=== PATIENT | male | born 1945 | race Caucasian/White ===

== ENCOUNTER 2025-06-25 13:18 | Outpatient (OUT) | payer MEDICARE, SELFPAY ==
--- OUTSIDE RECORDS SUMMARY | 2025-06-25 13:24 | XMS_ITS | Clinical Summary ---
Author Organization [facility] Address [address] [place] [address] Phone Care Team Providers Care Structures Assembler Name Role Phone Jose Clarke DO Primary Care Provider [phone] Social History Tobacco UseTypesPacks/DayYears UsedDateSmoking Tobacco: Never AssessedSex and Gender InformationValueDate RecordedSex Assigned at BirthNot on fileLegal Sex Male07/13/2022 11:45 PM ESTGender IdentityNot on fileSexual OrientationNot on file Plan of Treatment Not on file Care Teams Team MemberRelationshipSpecialtyStart DateEnd Date Jose Clarke DO PCP - Bonwtev05/3/11
--- OUTSIDE RECORDS SUMMARY | 2025-06-25 13:24 | XMS_ITS | Clinical Summary ---
Author Organization [facility] Address [address] [place] [address] Care Team Providers Care Program Admin Name Role Phone Unavailable Primary Care Provider Unavailabl e Encounters DateTypeDepartmentCare HaeoXoedmdnszco84/03/2025 3:45 PM EDTAncillary Procedure [facility] [address] [place] [address] Abnormal findings on diagnostic imaging of other specified body structures 05/21/2025Travelfrom Last 3 Months Social History Tobacco UseTypesPacks/DayYears UsedDateSmoking Tobacco: Never AssessedSex and Gender InformationValueDate RecordedSex Assigned at BirthNot on fileLegal Sex Male05/19/2025 10:38 AM EDTGender IdentityNot on fileSexual OrientationNot on file Plan of Treatment Health MaintenanceDue DateLast DoneCommentsPneumococcal Vaccine: 65+ Years (1 of 1 - PCV)1995COVID-19 Vaccine (2023-25 season)501/04/2025, 01/22/2024, 05/22/2023Influenza Vaccine (#1)2025 Procedures Procedure NamePriorityDate/TimeAssociated DiagnosisCommentsCT ABDOMEN PELVIS WO IV OYHIMPSVFemuigr53/03/2025 3:36 PM EDT Abnormal findings on diagnostic imaging of other specified body structures from Last 3 Months Results * CT abdomen pelvis wo IV contrast (05/21/2025 3:36 PM EDT)Anatomical Region LateralityModalityBody, Pelvis, AbdomenComputed TomographySpecimen (Source) Anatomical Location / LateralityCollection Method / VolumeCollection Time Received Time05/24/2025 2:01 PM EDT Impressions 05/24/2025 2:11 PM EDT Small bilateral kidneys. Nonobstructing bilateral renal calculi. Bilateral renal cortical cysts, greater on the left as discussed. Diverticulosis, sigmoid and descending colon. Prostatomegaly. Other findings discussed. All CT scans at this facility use dose modulation, iterative reconstruction, and/or weight based dosing when appropriate to reduce radiation dose to as low as reasonably achievable. ELECTRONICALLY SIGNED BY: Venancio Naik MD Narrative 05/24/2025 2:[address] of the Abdomen and Pelvis without intravenous contrast medium History: Microhematuria. Asymptomatic. History of renal calculi. Technical Factors: CT imaging of the abdomen and pelvis were obtained and formatted as 5 mm contiguous axial images from the domes of the diaphragm to the symphysis pubis. ??Sagittal and coronal reconstructions were also obtained. Oral contrast medium: None. Intravenous contrast medium: None. Comparison: None. Findings: Lower chest: Cardiac size normal. No pericardial effusion. No coronary artery calcification. Calcification identified in the region of the mitral valve/annulus. Lung bases are clear. Liver: ??Normal in size, shape, and attenuation. ?? Bile Ducts: ??Normal in caliber. Gallbladder: ??No stones or wall thickening. Pancreas: ??Normal without masses, cysts, ductal dilatation or calcification. Spleen: ??Normal in size without masses or calcifications. ??No splenules. Kidneys: Craniocaudal dimensions right and left kidneys, 6.8 cm, and 6 cm, respectively. Marked cortical thinning, right kidney. 1.4 mm calculus posterior midpole right kidney. 1.3 mm calculus mid toupper pole left kidney, with 1.2 cm calculus, left renal collecting system. No pelvocaliectasis bilaterally. Bilateral cortical renal cysts, greater on left, with largest left renal cortical cyst measuring approximately 6.9 x 8.1 x 9.7 cm. Adrenals: ??Normal. Small bowel: ??Normal in caliber. Appendix: ??Normal. Colon: ??Normal in caliber. Diverticular change, descending and sigmoid colon. Peritoneum: ??No ascites, free air, or fluid collections. Vessels: ??Aorta normal in course and caliber. Atherosclerotic change identified greatest at aortoiliac junction. Lymph nodes: ?? Retroperitoneal: ??No enlarged retroperitoneal lymph nodes. Mesenteric: ??No enlarged mesenteric lymph nodes. Pelvic: No enlarged pelvic lymph nodes. Ureters: Normal in course and caliber. No calcifications. Bladder: No wall thickening. Decompressed. Prostate: Enlarged with transverse diameter 5.2 cm. Abdominal Wall: Fat identified within bilateral inguinal canals. No diastasis of rectus musculature. ?? No edema or masses. Bones: ??No bone lesions. No degenerative changes. No post operative changes. Procedure Note Signer, MD Venancio - 05/24/2025 CT of the Abdomen and Pelvis without intravenous contrast medium History: Microhematuria. Asymptomatic. History of renal calculi. Technical Factors: CT imaging of the abdomen and pelvis were obtained and formatted as 5 mm contiguous axial images from the domes of the diaphragm to the symphysispubis. Sagittal and coronal reconstructions were also obtained. Oral contrast medium: None. Intravenous contrast medium: None. Comparison: None. Findings: Lower chest: Cardiac size normal. No pericardial effusion. No coronaryartery calcification. Calcification identified in the region of the mitral valve/annulus. Lung bases are clear. Liver: Normal in size, shape, and attenuation. Bile Ducts: Normal in caliber. Gallbladder: No stones or wall thickening. Pancreas: Normal without masses, cysts, ductal dilatation orcalcification. Spleen: Normal in size without masses or calcifications. No splenules. Kidneys: Craniocaudal dimensions right and left kidneys, 6.8 cm, and 6 cm, respectively. Marked cortical thinning, right kidney. 1.4 mm calculusposterior midpole right kidney. 1.3 mm calculus mid to upper pole leftkidney, with 1.2 cm calculus, left renal collecting system. Nopelvocaliectasis bilaterally. Bilateral cortical renal cysts, greater onleft, with largest left renal cortical cyst measuring approximately 6.9 x8.1 x 9.7 cm. Adrenals: Normal. Small bowel: Normal in caliber. Appendix: Normal. Colon: Normal in caliber. Diverticular change, descending and sigmoidcolon. Peritoneum: No ascites, free air, or fluid collections. Vessels: Aorta normal in course and caliber. Atherosclerotic changeidentified greatest at aortoiliac junction. Lymph nodes: Retroperitoneal: No enlarged retroperitoneal lymph nodes. Mesenteric: No enlarged mesenteric lymph nodes. Pelvic: No enlarged pelvic lymph nodes. Ureters: Normal in course and caliber. No calcifications. Bladder: No wall thickening. Decompressed. Prostate: Enlarged with transverse diameter 5.2 cm. Abdominal Wall: Fat identified within bilateral inguinal canals. No diastasis of rectus musculature. No edema or masses. Bones: No bone lesions. No degenerative changes. No post operative changes. IMPRESSION: Small bilateral kidneys. Nonobstructing bilateral renal calculi. Bilateral renal cortical cysts, greater on the left as discussed. Diverticulosis, sigmoid and descending colon. Prostatomegaly. Other findings discussed. All CT scans at this facility use dose modulation, iterativereconstruction, and/or weight based dosing when appropriate to reduceradiation dose to as low as reasonably achievable. ELECTRONICALLY SIGNED BY: Venancio Naik MD Authorizing ProviderResult TypeResult StatusPaloly Grimaldo MDIMG CT PROCEDURES Final Result from Last 3 Months Insurance * Guarantor: Jose D NathanAccount TypeRelation to PatientDate of BirthPhone Billing AddressPersonal/ZkfqfdBjsj1945 [facility] [place] [address]
--- OUTSIDE RECORDS SUMMARY | 2025-06-25 13:24 | XMS_ITS | Clinical Summary ---
Author Organization [facility] Address [address] [place] [address] Care Team Providers Care Apartment Groundskeeper Name Role Phone Unavailable Primary Care Provider Unavailabl e Allergies Active AllergyReactionsCriticalityNoted DateCommentsSulfa (Sulfonamide Antibiotics)Vmgrwgu0009/06/19496576Ssfphofudlg38/26/2023 Pancreatitis Medications MedicationSigDispense QuantityRefillsLast FilledStart DateEnd DateStatus amLODIPine (Norvasc) 5 mg tablet Indications:Hypertensive chronic kidney disease with stage 1 through stage 4 chronic kidney disease, or unspecified chronic kidney diseaseamlodipine 5 mg tablet 90 tablet ctive aspirin 81 mg EC tablet Indications:Type 2 diabetes mellitus with stage 3a chronic kidney disease, without long-term current use of insulin (CMS/[facility])aspirin 81 mg tablet,delayed release TK 1 T PO QD 90 tablet ctive baclofen (Lioresal) 5 mg tablet Indications:Acute left-sided low back pain without sciaticaTake 1 tablet (5 mg) by mouth if needed in the morning, at noon, and at bedtime (muscle pain). 30 tablet ctive dapagliflozin (Farxiga) 10 mg Indications:Type 2 diabetes mellitus with stage 3a chronic kidney disease, without long-term current use of insulin (CMS/HCC)Take 1 tablet (10 mg) by mouth in the morning. 90 tablet ctive fenofibrate (Fenoglide) 120 mg tablet Indications:Mixed hyperlipidemiafenofibrate 145 mg 90 tablet ctive losartan (Cozaar) 25 mg tablet Indications:Hypertensive chronic kidney disease with stage 1 through stage 4 chronic kidney disease, or unspecified chronic kidney diseaseTake 1 tablet (25 mg) by mouth in the morning. 30 tablet ctive tamsulosin (Flomax) 0.4 mg 24 hr capsule Indications:Benign prostatic hyperplasia with urinary retentionTake 1 capsule (0.4 mg) by mouth in the morning. 90 capsule ctive zinc gluconate 30 mg tablet Indications:Preventative health care1 tab(s) 90 tablet ctive zinc-vit C-pyridoxine, vit B6, 12-60-0.5 mg lozenge Indications:Preventative health carezinc 90 lozenge ctive OneTouch Verio test strips strip Indications:Type 2 diabetes mellitus with stage 3b chronic kidney disease, without long-term current use of insulin (CMS/HCC)Check once daily 100 strip ctive glimepiride (Amaryl) 2 mg tablet Indications:Type 2 diabetes mellitus with stage 3b chronic kidney disease, without long-term current use of insulin (CMS/HCC)Take 1 tablet (2 mg) by mouth before breakfast. 90 tablet ctive metoprolol tartrate (Lopressor) 25 mg tablet Indications:Hypertensive chronic kidney disease with stage 1 through stage 4 chronic kidney disease, or unspecified chronic kidney diseaseTAKE 1 TABLET BY MOUTH IN THE MORNING AND AT BEDTIME 200 tablet ctive metFORMIN (Glucophage) 1,000 mg tablet Indications:Type 2 diabetes mellitus with stage 3b chronic kidney disease, without long-term current use of insulin (CMS/HCC)TAKE 1 TABLET BY MOUTH TWICE DAILY WITH MORNING AND EVENING MEALS 200 tablet ctive rosuvastatin (Crestor) 20 mg tablet Indications:Mixed hyperlipidemiaTAKE 1 TABLET BY MOUTH IN THE MORNING 100 tablet ctive Active Problems ProblemNoted DateDiagnosed DateChronic UTI (urinary tract infection)03/07/2022 Counseling on health promotion and disease qmovigvwvh69/21/2021 Overview (11/12/2022): Last Assessment & Plan: Patient received his COVID-19 vaccine series including booster. He states that he is not interestedin getting a flu vaccine. Has never had the pneumococcal vaccine, Tdap or Shingrix herpes zoster vaccines. I provided him with literature for each. I informed him that due to his diabetes he is more prone to infection as well as complications that he can protect himself from severe complications with the vaccines. Type 2 diabetes mellitus with stage 3b chronic kidney disease, without long-term current use of gaboqtq0308/08/2021 Overview (11/12/2022): Last Assessment & Plan: Assessment: Patient has evidence of neuropathy and nephropathy, and the latter is advanced enough that checkingurinalysis and microalbumin is not indicated.. May well have diabetic retinopathy. PLAN: I will encourage the patient to have a dilated retinal examination by his software development project manager to look for microaneurysms second be lasered before they bleed. Check A1c. Stage 3b chronic kidney disease (CKD)06/22/2021 Overview (11/12/2022): Last Assessment & Plan: Assessment: Estimated GFR is now in the low 30s. PLAN: Continue current therapy. Consider switching glimepiride to Januvia or similar SGLT2 antagonist since this may help delay progression of CKD. GLP-1 agonist is another option. Will give further adviceonce A1c is done. Kdjtilcnetgjyacyeukz23/05/2021bnormal ECG06/21/2020Aortic valve disorder 06/21/2020Carotid atherosclerosis, bntrcxspy78/03/2020Coronary artery disease involving coronary bypass graft of [place] heart without angina pectoris 06/21/2020Essential zkcqjibrakdo77/03/2020 Overview (11/12/2022): Last Assessment & Plan: Assessment: Patient's blood pressure was at goal during his visit with Dr. Rutherford though systolic blood pressure is mildly elevated here today. PLAN: Continue to monitor. Continue current treatment. Check basic metabolic panel prior to next office visit to monitor progression of CKD Kidney cysts08/19/2018 Immunizations ImmunizationAdministration DatesNext DueCovid (Pfizer) Bivalent Booster =>12 YRS 10/25/2022 Social History Tobacco UseTypesPacks/DayYears UsedDateSmoking Tobacco: FormerCigarettesQuit: 2008Smokeless Tobacco: Never Tobacco Cessation:Counseling Given: Not Answered Alcohol UseStandard Drinks/QnqsGtawuaeiNmx48 (1 standard drink = 0.6 oz pure alcohol)PHQ-2AnswerDate RecordedPatient Health Questionnaire-2 [place] [place] Safety & EnvironmentAnswerDate RecordedFear of Current or Ex-PartnerNot on file10/10/2023Emotionally AbusedNot on file10/10/2023hysically AbusedNot on file10/10/2023Sexually AbusedNot on file10/10/2023hysically or Sexually Abused Not on file10/10/2023Sex and Gender InformationValueDate RecordedSex Assigned at BirthNot on fileLegal DoiLkyy7709/27/2022 10:14 AM ESTGender IdentityNot on file Sexual OrientationNot on file Last Filed Vital Signs Vital SignReadingTime TakenCommentsBlood Cvxikavb616/66002/11/2023 3:34 PM EDT Lucth869402/11/2023 3:34 PM EDTTemperature--Respiratory Filo905202/11/2023 3:30 PM EDTOxygen Yyvxoikhxf87%02/11/2023 3:34 PM EDTInhaled Oxygen Concentration-- Kvzffv52.6 kg (213 lb)02/11/2023 3:30 PM DUDPcefrc320.8 cm (5' 10 )02/11/2023 3:30 PM EDTBody Mass Index30.5606 3:30 PM EDT Plan of Treatment Health MaintenanceDue DateLast DoneCommentsMedicare Annual Wellness (AWV) 1945Diabetes: Retinopathy Ccflaasty24/04/1955Depression Screening 1957Pneumococcal Vaccine: 50+ Years (1 of 2 - PCV)1964Adult Tetanus 1967Zoster Vaccines (1 of 2)1995Fall Risk Qdpzyxeyr46/04/2010 Diabetes: Hemoglobin A1C/, 11/12/2022iabetes: Urine Protein Coxqmdjgp48/07/392579, 05/30/2023OVID-19 Vaccine (2 - season) 2023Influenza Vaccine (#1)2025HIB VaccinesAged OutNo longer eligible based on patient's age to complete this topicHPV VaccinesAged OutNo longer eligible based on patient's age to complete this topicIPV Vaccines Aged OutNo longer eligible based on patient's age to complete this topic Meningococcal B VaccineAged OutNo longer eligible based on patient's age to complete this topicMeningococcal VaccineAged OutNo longer eligible based on patient's age to complete this topicRotavirus VaccinesAged OutNo longer eligible based on patient's age to complete this topic Procedures Procedure NamePriorityDate/TimeAssociated DiagnosisCommentsHEMOGLOBIN E5BYkbhvov 02/11/2023 5:13 PM EDT Type 2 diabetes mellitus with stage 3b chronic kidney disease, without long-term current use of insulin ([facility]) from Last 3 Months or Most Recently Relevant to Health Maintenance Results * (ABNORMAL) Hemoglobin A1c (02/11/2023 5:13 PM EDT)ComponentValueRef RangeTest MethodAnalysis TimePerformed AtPathologist SignatureHemoglobin A1C7.7(H)4.0 - 6.0 %02/12/2023 9:[address] [facility]Estimated Average Glucose 174mg/dL02/12/2023 9:[address] [facility])Specimen (Source) Anatomical Location / LateralityCollection Method / VolumeCollection Time Received TimeBloodVenous blood specimen / UnknownVenipuncture / Unknown 02/11/2023 5:13 PM EDT02/11/2023 5:13 PM EDT Narrative Authorizing ProviderResult TypeResult StatusAmmar Alina HARRINGTON BLOOD ORDERABLESFinal ResultPerforming OrganizationAddressCity/State/ZIP CodePhone Number [facility] [address] [place], [place] [id number] from Last 3 Months or Most Recently Relevant to Health Maintenance Insurance
--- OUTSIDE RECORDS SUMMARY | 2025-06-25 13:24 | XMS_ITS | Clinical Summary ---
Author Organization [facility] Address [address] [place] [address] Care Team Providers Care Budget Analyst Name Role Phone Valerie Scales MD Primary Care Provider [phone] Allergies Active AllergyReactionsCriticalityNoted DateCommentsSulfa Drugs05/07/2014 Medications MedicationSigDispense QuantityRefillsLast FilledStart DateEnd DateStatus glimepiride (AMARYL) 2 MG tablet Take 2 mg by mouth every morning (before breakfast)Active metoprolol tartrate (LOPRESSOR) 100 MG tablet Take 100 mg by mouth 2 times dailyActive lovastatin (MEVACOR) 20 MG tablet Take 20 mg by mouth nightlyActive metformin (GLUMETZA) 1000 MG (MOD) 24 hr tablet Take 1,000 mg by mouth daily (with breakfast)Active lisinopril (PRINIVIL,ZESTRIL) 20 MG tablet Take 20 mg by mouth dailyActive aspirin 81 MG EC tablet Take 81 mg by mouth dailyActive Active Problems ProblemNoted DateDiagnosed DateDuulises's kyjkbleifja78/19/2014 Family History Medical HistoryRelationCommentsCancerFatherCoronary art disFatherDiabetesFather Heart diseaseFatherHigh blood pressureFatherHigh cholesterolFatherKidney disease FatherStrokeFatherCancerMotherCoronary art disMotherDiabetesMotherHeart disease MotherHigh blood pressureMotherHigh cholesterolMotherKidney diseaseMotherCancer SisterRelationStatusCommentsFatherDeceasedMotherDeceasedSisterAlive Social History Tobacco UseTypesPacks/DayYears UsedDateSmoking Tobacco: FormerCigarettesQuit: 04/29/2011Smokeless Tobacco: NeverAlcohol UseStandard Drinks/WeekCommentsYes0 (1 standard drink = 0.6 oz pure alcohol)dailySex and Gender InformationValueDate RecordedSex Assigned at BirthNot on fileLegal LuzWhlp7604/02/2014 9:19 AM CDT Gender IdentityNot on fileSexual OrientationNot on file Last Filed Vital Signs Vital SignReadingTime TakenCommentsBlood Pmynyyho215/62005/07/2014 12:15 PM CDT [place]956605/07/2014 12:15 PM WWTFlesemdmcgk04.7 ??C (98 ??F)05/07/2014 12:15 PM CDTRespiratory Gdep603905/07/2014 12:15 PM CDTOxygen Xvsdcpkxib68%05/07/2014 12:15 PM CDTInhaled Oxygen Concentration--Chkxup067.4 kg (250 lb)04/29/2014 10:43 AM HMNItftlu799.8 cm (5' 10 )04/29/2014 10:43 AM CDTBody Mass Index35.8704/29/2014 10:43 AM CDT Plan of Treatment Not on file Insurance * Guarantor: Jose D Nathan TypeRelation to PatientDate of BirthPhone Billing HjkjhapErctaUzdl1945 [facility] [place] [address] Care Teams Team MemberRelationshipSpecialtyStart DateEnd Date Valerie Scales MD [address] [place] [address] PCP - Erlinda Staff Physician01/25/16
--- OUTSIDE RECORDS SUMMARY | 2025-06-25 13:24 | XMS_ITS | Clinical Summary ---
Author Organization [facility] Address [address]], [place] [address] Care Team Providers Care Visual Merchandise Manager Name Role Phone Deejay Drake MD Unavailable [phone] Taiwo Jasso MD Unavailable [phone] Jose D Worley MD Unavailable Jamee Griffin MD Unavailable Allergies Active AllergyReactionsCriticalityNoted DateCommentsSulfa (Sulfonamide Antibiotics)ZckhpyuUtj56/14/2012 Medications MedicationSigDispense QuantityRefillsLast FilledStart DateEnd DateStatus aspirin 81 mg tablet Take 81 mg by mouth daily.Active gabapentin (NEURONTIN) 300 mg capsule Take 300 mg by mouth dailyActive lisinopril (PRINIVIL,ZESTRIL) 20 mg tablet Take 1 Tab by mouth daily 90 Tab Active BLOOD GLUCOSE TEST STRIPS Patgient tests once daily DX: E11.9 100 Strip 11012/16/2015Active oxybutynin (DITROPAN) 5 mg tablet Take 1 Tab by mouth 2 (two) times daily 60 Tab Active amLODIPine (NORVASC) 5 mg tablet Take 5 mg by mouth dailyActive metoprolol tartrate (LOPRESSOR) 50 mg tablet Take 50 mg by mouth dailyActive cholecalciferol (VITAMIN D3) 1,000 unit tablet Take 1,000 Units by mouth dailyActive metFORMIN (GLUCOPHAGE) 500 mg tablet Take 1 Tab by mouth 2 (two) times daily with meals 180 Tab Active glimepiride (AMARYL) 4 mg tablet Take 1 Tab by mouth every morning 90 Tab Active lovastatin (MEVACOR) 20 mg tablet Take 1 Tab by mouth every evening 90 Tab Active BLOOD GLUCOSE TEST STRIPS Test twice daily as needed Dx. Controlled Type 2 non-insulin dependent diabetes 100 Strip Active Active Problems Patient Care Coordination No te Formatting of this note migh t be different from the original. Cardio Dr. 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 Griffin renal Resolved Problems ProblemNoted DateDiagnosed DateResolved DateRenal ygnuhevmyplhz78/29/2016 02/14/2016Knee pain, left5Cervical mkjpngvuxotlp15/14/2012 12/16/2015CAD (coronary artery disease)12/16/2015 Family History Medical HistoryRelationNameCommentsDiabetesMaternal grandfatherDiabetesMaternal grandmotherCancerNatural fatherDiabetesNatural fatherHeart DiseaseNatural father CancerNatural motherDiabetesNatural motherHeart DiseaseNatural motherCancer Natural sisterDiabetesPaternal grandfatherDiabetesPaternal grandmotherRelation NameStatusCommentsMaternal grandfatherMaternal grandmotherNatural fatherNatural motherNatural sisterPaternal grandfatherPaternal grandmother Social History Tobacco UseTypesPacks/DayYears UsedDateSmoking Tobacco: FormerCigarettes0.55 08/19/2003 - 08/19/2008Smokeless Tobacco: NeverAlcohol UseStandard Drinks/Week CommentsYes5 (1 standard drink = 0.6 oz pure alcohol)DailySex and Gender InformationValueDate RecordedSex Assigned at BirthNot on fileLegal SexMale 07/01/2012 10:30 PM ESTGender IdentityNot on fileSexual OrientationNot on file Last Filed Vital Signs Vital SignReadingTime TakenCommentsBlood Unteppia983/60002/17/2016 9:00 AM CDT Zdfmg460802/17/2016 9:00 AM VNIRxlrzdazqby69.4 ??C (97.6 ??F)02/17/2016 9:00 AM CDTRespiratory Eilj936202/17/2016 9:00 AM CDTOxygen Xmgulukact16%02/17/2016 9:00 AM CDTInhaled Oxygen Concentration--Rcmvae239.7 kg (233 lb)02/17/2016 9:00 AM GFWByjqkp058 cm (5' 8.5 )02/17/2016 9:00 AM CDTBody Mass Index34.9102/17/2016 9:00 AM CDT Plan of Treatment Health MaintenanceDue DateLast DoneCommentsDepression Alccuqpdj14/04/1963 Pneumococcal Vaccination (1 of 2 - PCV)1964Tdap/Td Vaccination (1 - Tdap) 1966Zoster (Shingrix) Vaccination (1 of 2)1995Lab-ALT02/13/2017 02/14/2016Lab-K (Potassium), 12/14/2015, 10/29/2015, Additional history existsLab-Lipid Gkxbxpzsat90Well Visit RSV Vaccination (1 - 1-dose 75+ series)2020Influenza Vaccination (#1)5COVID-19 Vaccine (1 - 2024-26 season)2025 Procedures Procedure NamePriorityDate/TimeAssociated DiagnosisCommentsCOMPREHENSIVE METABOLIC GDPWLZitbzrh53/28/2016 LIPID PROFILE WITH REFLEX TO LDL, CUVIQFAxstzlp55/28/2016 from Last 3 Months or Most Recently Relevant to Health Maintenance Results * LIPID PANEL (02/14/2016)ComponentValueRef RangeTest MethodAnalysis Time Performed AtPathologist XdkkyurneDDMINPNRINWZY650ASDFM OF QUVUDARPUCHCCSU501 POINT OF CAREHDL PIPQBUVFKME12OKSVP OF CARELDL GYRFGMPUDTL95YKPMT OF CARENON- HDL CHOLESTEROLPOINT OF CAREVLDL CalculatedPOINT OF CARECHOL HDLC RATIOPOINT OF CARESpecimen (Source)Anatomical Location / LateralityCollection Method / VolumeCollection TimeReceived TimeBlood Narrative Authorizing ProviderResult TypeResult StatusHistorical ProviderLAB BLOOD ORDERABLESEdited Result - FinalPerforming OrganizationAddressCity/State/ZIP Code Phone Number POINT OF CARE * COMPREHENSIVE METABOLIC PANEL (02/14/2016)ComponentValueRef RangeTest Method Analysis TimePerformed AtPathologist ZsnigwkacGQZKHW411IOCDW OF CAREPOTASSIUM 4.8POINT OF CARECHLORIDEPOINT OF CARECARBON DIOXIDEPOINT OF CAREANION GAPPOINT OF UWHOUWLWZVK956SLCOI OF OMBBZQB87FMFZE OF CARECREATININE1.64POINT OF CAREAST (SGOT)15POINT OF CAREALT (SGPT)15POINT OF CAREALK PHOS TOTALPOINT OF CARETOTAL BILIRUBIN0.3POINT OF CARETOTAL PROTEIN ELECTROPHERESISPOINT OF CAREALBUMIN POINT OF CAREA/G RATIOPOINT OF CARECALCIUM9.4POINT OF CARESpecimen (Source) Anatomical Location / LateralityCollection Method / VolumeCollection Time Received TimeBlood Narrative Authorizing ProviderResult TypeResult StatusHistorical ProviderLAB BLOOD ORDERABLESEdited Result - FinalPerforming OrganizationAddressCity/State/ZIP Code Phone Number POINT OF CARE from Last 3 Months or Most Recently Relevant to Health Maintenance Insurance * Guarantor: Jose D NathanAccount TypeRelation to PatientDate of BirthPhone Billing AddressPersonal/SihcqkGgtp1945 Care Teams Team MemberRelationshipSpecialtyStart DateEnd Date Deejay Drake MD [address] [place] [id number] PhysicianOphthalmology12/16/15 Taiwo Jasso MD [address] [place] [address] PhysicianDermatology12/16/15 Jose D Worley MD [address] [facility] [place] [place] [address] PhysicianOrthopedic Surgery12/16/15 Jamee Griffin MD [address] [place] [address] PhysicianNephrology12/16/15
--- NOTE | 2025-06-25 13:30 | XR_ITS ---
The [address] [address] Patient Name: HUSSAIN GUIDO MRN: [id number] date: 1945 Sex: M [facility] Current Patient Location: [facility] Accession/Order Number: [id number] Exam Date: 06/25/2025 14:28 Report Date: 06/25/2025 16:29 At the request of: WILLIE CRAWFORD MD Procedure: XR chest 2V PA AND LATERAL CHEST: CLINICAL HISTORY: Preop exam COMPARISON: None FINDINGS: Sternotomy wires. Enlarged cardiomediastinal silhouette. No focal airspace opacity effusion or pneumothorax. XR/XR chest 2V IMPRESSION: NO ACUTE CARDIOPULMONARY ABNORMALITY. Impression dictated by: Andrez Prince M.D. 06/25/2025 4:29 PM Dictation Location: [place] [address] Electronically authenticated by: [id number] Y Date: 06/25/2025 16:29
--- NOTE | 2025-06-25 13:55 | ECG_ITS ---
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
--- NOTE | 2025-06-25 14:13 | PM.PRESUREVA ---
History of Present Illness History of Present Illness Chief complaint: left kidney stone Narrative: Patient presents for presurgical testing. The patient states he was evaluated by urology for polycystic kidney disease, frequency with urination, and incomplete bladder emptying. He states left-sided kidney stones were discovered at that time. He denies dysuria, hematuria, abdominal pain, nausea, vomiting, fever, or any other complaints. Review of Systems ROS Narrative REVIEW OF SYSTEMS: Negative except as stated in HPI, ten or more systems reviewed. Constitutional: No fever, chills, weakness ENT: No sore throat or epistaxis Cardiovascular: No chest pain, palpitations, or activity intolerance Respiratory: No shortness of breath, cough, or wheezing Musculoskeletal: No joint pain or swelling Gastrointestinal: No abdominal pain, constipation, diarrhea, or vomiting Genitourinary: No dysuria or hematuria Neurological: No numbness, tingling, weakness, or headache Psychiatric: No mood changes [facility] Medical History (Updated 06/25/25 @ 14:05 by Gissel Guerrier NP) History of cardioversion ?Z92.89 - Personal history of other medical treatment (ICD-10) Heart murmur ?R01.1 - Cardiac murmur, unspecified (ICD-10) Skin cancer ?C44.90 - Unspecified malignant neoplasm of skin, unspecified (ICD-10) Eczema ?L30.9 - Dermatitis, unspecified (ICD-10) Left hip pain ?M25.552 - Pain in left hip (ICD-10) Arthritis ?M19.90 - Unspecified osteoarthritis, unspecified site (ICD-10) Back pain ?M54.9 - Dorsalgia, unspecified (ICD-10) Sleep apnea ?G47.30 - Sleep apnea, unspecified (ICD-10) Extremity edema ?R60.0 - Localized edema (ICD-10) Atrial fibrillation ?I48.91 - Unspecified atrial fibrillation (ICD-10) S/P extracorporeal shock wave therapy ?Z98.890 - Other specified postprocedural states (ICD-10) Carpal tunnel syndrome ?G56.00 - Carpal tunnel syndrome, unspecified upper limb (ICD-10) Diabetes ?E11.9 - Type 2 diabetes mellitus without complications (ICD-10) Chronic kidney disease ?N18.9 - Chronic kidney disease, unspecified (ICD-10) Hyperlipidemia ?E78.5 - Hyperlipidemia, unspecified (ICD-10) Hypertension ?I10 - Essential (primary) hypertension (ICD-10) Carotid atherosclerosis ?I65.29 - Occlusion and stenosis of unspecified carotid artery (ICD-10) Aortic stenosis ?I35.0 - Nonrheumatic aortic (valve) stenosis (ICD-10) CAD (coronary artery disease) ?I25.10 - Atherosclerotic heart disease of citizen [place] coronary artery without angina pectoris (ICD-10) Cataract ?H26.9 - Unspecified cataract (ICD-10) Polycystic kidney disease ?Q61.3 - Polycystic kidney, unspecified (ICD-10) Decreased renal function ?N28.9 - Disorder of kidney and ureter, unspecified (ICD-10) BPH with obstruction/lower urinary tract symptoms ?N40.1 - Benign prostatic hyperplasia with lower urinary tract symptoms (ICD-10) ?N13.8 - Other obstructive and reflux uropathy (ICD-10) Anticoagulated ?Z79.01 - custodial (current) use of anticoagulants (ICD-10) Kidney stones ?N20.0 - Calculus of kidney (ICD-10) Surgical History (Updated 06/25/25 @ 13:50 by Gissel Guerrier NP) H/O local excision of skin lesion ?Z98.890 - Other specified postprocedural states (ICD-10) S/P epidural steroid injection ?Z92.241 - Personal history of systemic steroid therapy (ICD-10) Hx of prostate biopsy ?Z98.890 - Other specified postprocedural states (ICD-10) History of cataract extraction ?Z98.49 - Cataract extraction status, unspecified eye (ICD-10) S/P ureteral stent placement ?Z96.0 - Presence of urogenital implants (ICD-10) H/O hand surgery ?Z98.890 - Other specified postprocedural states (ICD-10) History of carpal tunnel surgery ?Z98.890 - Other specified postprocedural states (ICD-10) Hx of CABG (1997) ?Z95.1 - Presence of aortocoronary bypass graft (ICD-10) Hx of tonsillectomy ?Z90.89 - Acquired absence of other organs (ICD-10) 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 (ICD-10) H/O colonoscopy ?Z98.890 - Other specified postprocedural states (ICD-10) Family History (Updated 06/25/25 @ 13:49 by Gissel Guerrier NP) Other Family history of cancer Family history of diabetes mellitus Family history of hypertension Family history of myocardial infarction Family history of stroke Heart disease Social History (Updated 06/25/25 @ 13:44 by Gissel Guerrier NP) Within the past year, how often did you have a drink containing alcohol: 4 or more times a week Smoking status: Former smoker Non-prescribed substance use: denies use Highest level of school completed/degree received: high school graduate Meds Home Medications and Allergies Home Medications ?Medication ?Instructions ?Recorded ?Confirmed ?Type acetaminophen 500 mg tablet 500 mg PO Q6H PRN pain 06/25/25 06/25/25 History (Acetaminophen Extra Strength) betamethasone dipropionate 0.05 % 1 applic topical Q12H 06/25/25 06/25/25 History topical ointment doxazosin 4 mg tablet 4 mg PO QPM 06/25/25 06/25/25 History furosemide 20 mg tablet 20 mg PO DAILY PRN edema 06/25/25 06/25/25 History glimepiride 2 mg tablet 2 mg PO BID 06/25/25 06/25/25 History losartan 100 mg tablet 100 mg PO DAILY 06/25/25 06/25/25 History metformin 500 mg tablet 500 mg PO BID 06/25/25 06/25/25 History metoprolol tartrate 25 mg tablet 25 mg PO BID 06/25/25 06/25/25 History rivaroxaban 15 mg tablet (Xarelto) 15 mg PO DAILY 06/25/25 06/25/25 History rosuvastatin 20 mg tablet 20 mg PO DAILY 06/25/25 06/25/25 History tamsulosin 0.4 mg capsule 0.4 mg PO Q24H 06/25/25 06/25/25 History Allergies Allergy/AdvReac Type Severity Reaction Status Date / Time Sulfa (Sulfonamide Allergy Unknown Verified 06/25/25 13:42 Antibiotics) Exam Narrative Exam Narrative: Constitutional: Awake, alert, comfortable, well-appearing, nontoxic, interactive, vital signs as charted Head: Normocephalic, atraumatic Neck: Supple, normal appearance, normal range of motion, no meningeal signs, no lymphadenopathy Respiratory: No respiratory distress, breath sounds clear Cardiovascular: Regular rate, irregular rhythm, faint systolic murmur noted Abdomen: Nontender, normal bowel sounds, soft, no CVA tenderness Musculoskeletal: Normal gait, no swelling or edema Skin: No rashes or induration, no lesions, only visible skin inspected Neuro: No neurological deficits, normal sensation Psychiatric: Oriented ?3, normal affect Assessment and Plan Assessment and Plan (1) Kidney stones: Plan Cystoscopy, left retrograde, left ureteroscopy, laser, possible left stent placement scheduled with Dr. Grimaldo July 06, 2025.
[2025-06-25 14:31] LABS: INR 1.06; Partial Thromboplastin Time 29.4 sec (22.3-36.2); Prothrombin Time 11.2 sec (9.0-11.6)
[2025-06-25 14:34] LABS: Hematocrit 36.2 % (42.0-54.0); Hemoglobin 12.0 g/dL (14.0-18.0); Immature Granulocytes Abs Auto 0.03 10^3/uL (0.00-0.03); Immature Granulocytes Pct Auto 0.3 % (0.0-0.5); Lymphocytes Absolute Auto 2.1 10^3/uL (1.2-3.8); Mean Corpuscular HGB Conc 33.1 g/dL (29.9-35.2); Mean Corpuscular Hemoglobin 30.5 pg (25.9-34.0); Mean Corpuscular Volume 92.1 fL (80.0-94.0); Platelet Count 117 10^3/uL (150-450); Red Blood Count 3.93 10^6/uL (4.70-6.10); White Blood Count 9.2 10^3/uL (4.0-11.0)
[2025-06-25 15:55] LABS: Anion Gap 13.2; Blood Urea Nitrogen 39.0 mg/dL (7.0-18.0); Calcium 9.6 mg/dL (8.5-10.1); Carbon Dioxide 24.4 mmol/L (21.0-32.0); Chloride 108 mmol/L (98-107); Estimated GFR (African America 48 (>=60 mL/min/1.73m^2); Estimated GFR (Non-African Ame 39 (>=60 mL/min/1.73m^2); Glucose 126 mg/dL (74-106); Potassium 4.6 mmol/L (3.5-5.1); Sodium 141 mmol/L (136-145)
== END 2025-06-25 13:19 | disposition home or self-care (01) ==
LOC: PST 13:22
PROVIDERS: Visit Provider Urology
DX: Z01.810 Encounter for preprocedural cardiovascular examination (principal); Z01.812 Encounter for preprocedural laboratory examination; Z01.818 Encounter for other preprocedural examination; N20.0 Calculus of kidney
CPT/HCPCS: 71046; 80048; 85025; 85610; 85730; 93005; G0463

== ENCOUNTER 2025-07-06 10:58 | Day surgery (SDC) | payer MEDICARE, SELFPAY ==
[2025-06-25 14:00] VITALS: BP 152/72; PULSE 75; TEMP 36.3; O2SAT 100; BMI 34.6
[2025-07-06] VITALS (12 sets, daily range): BP systolic 116–163; BP diastolic 51–77; PULSE 57–100; TEMP 36.3–37.2; O2SAT 94–98; BMI 34.6
[2025-07-06] MEDS: CEFAZOLIN SODIUM 2 GM/50 ML D5W PREMIX IV (12:53)
[2025-07-06] MEDS: IOHEXOL 300 MG/ML - 50 ML BTL INJ (14:09)
--- NOTE | 2025-07-06 14:31 | P.URON_ITS ---
Urology Surgery Operative Note Operative Note Procedure Date: 07/06/25 Time Out Performed: yes Pre-op Diagnosis: Left nephrolithiasis Post-op Diagnosis: other (Same plus bladder tumor) Procedures performed: 1. Cystoscopy. 2. Left retrograde pyelogram. 3. Left ureteroscopy. 4. Left pyeloscopy. 5. Thulium laser lithotripsy of a large hard left renal calculus. 6. Placement of 6 Martiniquais variable length left ureteral stent. 7. Transurethral resection of bladder tumor approximately 3 cm Anesthesia: TIMA Primary Surgeon: Angelo Grimaldo Complications: None Estimated blood loss (mL): 5 Findings: 1. Low-lying left kidney. 2. Large hard left renal calculus. 3. 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 Bladder tumors Drains: 1. 6 Martiniquais variable length left ureteral stent. 2. 20 Martiniquais Sinha catheter in the bladder Indications for Procedures: This gentleman has a large left renal calculus for which he is getting endoscopic stone manipulation and stent placement. He has signed an informed consent for these procedures after all risks were explained. Detailed description of Procedure: The patient was brought to the operating room and placed on the operating room table in the supine position. SCDs were placed on the lower extremities and turned on and functioning during the entire case. Timeout was done by all parties in the room. We all agreed upon the patient's identification and the planned procedures for this patient. Genn. anesthesia was then administered. The patient was then repositioned into the modified dorsal lithotomy position. All pressure points were satisfactorily padded. Genitalia were sterilely prepped and draped in usual fashion. I started by passing a 22 Martiniquais Olympus cystoscope per urethra and into the bladder. He had minor stricture disease at the bulb. Prostatic urethra had moderate regrowth from her prior TUR. Careful panendoscopy in the bladder revealed papillary TCC appearing sheets of tumors on the left wall at least 3 cm in size. I then passed a open-ended ureteral catheter through the scope and up the left ureter. Contrast was injected in a retrograde manner. The anatomy was identified and the filling defect was seen where the stone was in the renal pelvis. His kidney was low-lying. The stone w as at the L4 position. I then passed a Glidewire through the scope up the ureter into the kidney and remove the scope. A 10/12 Martiniquais access sheath was slid over the wire and up the left ureter to the L5 position. The stylette and wire were then removed. A flexible ureteroscope was then passed through the sheath into the ureter and then I ascended up the ureter and then into the renal pelvis. I looked into all of the calyces and found no other stones. I then used 270 Angstrom laser fiber and made contact with the stone. The thulium laser was used at 7 W then 10 W and ultimately 15 W on the dusting mode. This was a very hard stone. We systematically fragmented the shell off and then the very hard anterior began to fragment. We lasered for an hour straight and ultimately were able to dust the stone and have submillimeter particles remaining in the renal pelvis. The fiber was removed and a wire was passed through the scope into the kidney and then the scope and access sheath were removed. I then passed the cystoscope back over the wire and into the bladder and then slid a 6 Martiniquais variable length stent over the wire up into the kidney. The wire was removed and there were good curls in the renal pelvis and in the bladder. The scope was then removed. After leaving the OR and talking with the and getting verbal consent to proceed with the TURBT I then passed a 26 Martiniqu[place] Olympus resectoscope with a standard bipolar loop electrode per urethra and into the bladder. I then uniformly and deeply resected all of this tumor. The resection bed was coagulated fully. The LivQuikk evacuator was used to get all of the bladder tumor pieces out and these were sent for permanent sections. Upon completion, there was no evidence of any other tumor and there was no bleeding from the resection site. The scope was then removed. I then placed a 20 Martiniquais two-way Sinha catheter in the bladder. It was irrigated to verify correct placement. 10 cc of fluid was placed in the balloon. It drained clear. The anesthetic was then reversed. He was then transferred to a [place] bed and wheeled to PACU in stable condition. Urinary Catheter Management Urinary Catheter Management Urethral: Cath placed during this visit: no
--- NOTE | 2025-07-06 15:40 | PC.NURSE ---
Patient had tylenol in surgery. Offered to get patient up to sit in recliner and patient refused. continues to complain of back discomfort
--- NOTE | 2025-07-06 15:45 | PC.NURSE ---
This sign writer letterer or painter went over discharge instructions with patient and his . Showed patient and his how to empty the leg bag. Reminded to hot die picker prescription for antibiotic before going home.
== END 2025-07-06 16:08 | disposition home or self-care (01) ==
LOC: SURGOUT 10:59
PROVIDERS: Visit Provider Urology
PROC: (CPT 52234; principal; 2025-07-06 12:40)
DX: N20.0 Calculus of kidney (principal); C67.9 Malignant neoplasm of bladder, unspecified; Z87.891 Personal history of nicotine dependence; G47.33 Obstructive sleep apnea (adult) (pediatric); Z95.1 Presence of aortocoronary bypass graft; J44.9 Chronic obstructive pulmonary disease, unspecified; R06.09 Other forms of dyspnea; E78.5 Hyperlipidemia, unspecified; I48.91 Unspecified atrial fibrillation; I25.10 Atherosclerotic heart disease of native coronary artery without angina pectoris; I35.0 Nonrheumatic aortic (valve) stenosis; E11.22 Type 2 diabetes mellitus with diabetic chronic kidney disease; N18.9 Chronic kidney disease, unspecified; I12.9 Hypertensive chronic kidney disease with stage 1 through stage 4 chronic kidney disease, or unspecified chronic kidney disease; M19.90 Unspecified osteoarthritis, unspecified site; Z79.84 Long term (current) use of oral hypoglycemic drugs
CPT/HCPCS: 52234; 52356; 36415; 74420; 82948; 88307; J0131; J0690; J1100; J2250; J2371; J2405; J3010; Q9967